=== PATIENT | female | born 1985 | race Caucasian/White ===

== ENCOUNTER 2017-01-28 18:28 | Outpatient (CLI) | payer OTHER | END 2017-01-28 21:54 | disposition home or self-care (01) | LOC: GENOP 18:28 | PROVIDERS: Obstetrics & Gynecology | DX: O26.893 Other specified pregnancy related conditions, third trimester (principal); R10.2 Pelvic and perineal pain; M54.5 Low back pain; R06.02 Shortness of breath; R05 Cough; R50.9 Fever, unspecified; Z3A.38 38 weeks gestation of pregnancy | CPT/HCPCS: 80307; 81001 ==

== ENCOUNTER 2017-02-02 18:51 | Inpatient (IN) | payer OTHER ==
[~2017-02-02] VITALS: Ht 157.5 cm; Wt 69.4 kg
[2017-02-02 23:14] LABS: HEMOGLOBIN 8.9 gm/dl (12.3-15.3); RED BLOOD COUNT 3.44 M/UL (4.00-5.10); WHITE BLOOD COUNT 6.9 K/UL (4.5-11.0)
[2017-02-04 03:18] LABS: HEMOGLOBIN 8.1 gm/dl (12.3-15.3)
== END 2017-02-06 20:39 | disposition home or self-care (01) | DRG 765 ==
LOC: OB 18:51
PROVIDERS: Obstetrics & Gynecology; ADMIT Obstetrics & Gynecology
PROC: 05HM33Z Insertion of Infusion Device into Right Internal Jugular Vein, Percutaneous Approach (ICD-10-PCS; 2017-02-02)
PROC: 10D00Z1 Extraction of Products of Conception, Low, Open Approach (ICD-10-PCS; principal; 2017-02-03 09:30)
DX: O34.211 Maternal care for low transverse scar from previous cesarean delivery (principal); O99.324 Drug use complicating childbirth; O98.42 Viral hepatitis complicating childbirth; O09.33 Supervision of pregnancy with insufficient antenatal care, third trimester; B19.20 Unspecified viral hepatitis C without hepatic coma; I87.2 Venous insufficiency (chronic) (peripheral); Z3A.39 39 weeks gestation of pregnancy; Z37.0 Single live birth
CPT/HCPCS: 71010; 80307; 81001; 82800; 85014; 85018; 85025; 90715; 94640; 94664; C1751; C9113; J1580; J2270; J2274; J2405; J2590; J2765; J3010; J3430; J7120